=== PATIENT | female | born 1985 | race Caucasian/White ===

== ENCOUNTER 2022-06-29 06:07 | Day surgery (SDC) | payer OTHER ==
[2022-06-28 11:55] LABS: Mean Corpuscular HGB CONC 34.9 g/dL (32.0-36.0); Mean Corpuscular Hemoglobin 28.6 pg (27.0-33.0); Mean Platelet Volume 9.2 fl (7.4-10.4); Platelet Count 231 10x3/uL (150-450); RBC Distribution Width 12.6 % (11.5-14.5); Red Blood Cell (RBC) Count 4.89 10x6/uL (3.90-5.03)
[2022-06-28 12:42] VITALS: BMI 24.7
[2022-06-29] MEDS ORDERED: Misoprostol 200 MCG TAB ONE (06:39)
[2022-06-29] MEDS ORDERED: Methylergonovine 0.2 MG/ML VIAL ONE (06:39)
[2022-06-29] MEDS ORDERED: Tranexamic Acid 1,000 MG/10 ML VIAL ONE (06:39)
[2022-06-29] MEDS ORDERED: Midazolam HCl 2 mg/2 ml Vial ONE ×2 (06:43→07:48)
[2022-06-29] MEDS ORDERED: Dexamethasone 20 MG/5 ML VIAL ONE (06:43)
[2022-06-29] MEDS ORDERED: Lidocaine 1% PF 5 ML VIAL ONE (06:43)
[2022-06-29] MEDS ORDERED: Ketorolac Tromethamine 30 MG/ML VIAL ONE (06:43)
[2022-06-29] MEDS ORDERED: Ondansetron PF 4 MG/2 ML Vial ONE (06:43)
[2022-06-29] MEDS ORDERED: PROPOFOL 20 ML ONE ×2 (06:43→08:06)
[2022-06-29] MEDS ORDERED: Fentanyl 100 MCG/2 ML VIAL ONE ×2 (06:43→08:52)
[2022-06-29] MEDS ORDERED: Lidocaine 1% MPF 2 ML VIAL ONE (07:35)
[2022-06-29] MEDS ORDERED: CEFAZOLIN 2 GM VIAL ONE (07:39)
[2022-06-29] MEDS ORDERED: Meperidine HCl/PF 25 MG/ML VIAL ONE (08:32)
== END 2022-06-29 11:35 | disposition home or self-care (01) ==
LOC: CSHSDC 06:07
PROVIDERS: ATTEND Student in an Organized Health Care Education/Training Program
PROC: 10D17ZZ Extraction of Products of Conception, Retained, Via Natural or Artificial Opening (ICD-10-PCS; principal; 2022-06-29)
DX: O02.1 Missed abortion (principal); Z20.822 Contact with and (suspected) exposure to COVID-19
CPT/HCPCS: 85027; 86850; 86900; 86901; 87811; 88305; 90384; 96372; J0690; J1100; J1885; J2175; J2210; J2250; J2405; J2704; J3010

== ENCOUNTER 2024-12-07 10:00 | Day surgery (SDC) | payer OTHER ==
[2024-12-06 13:44] VITALS: BMI 27.4
[2024-12-07] MEDS ORDERED: Doxycycline 100 MG CAP PO SCH (11:00)
[2024-12-07] MEDS ORDERED: Misoprostol 200 MCG TAB ONE (12:49)
[2024-12-07] MEDS ORDERED: Methylergonovine 0.2 MG/ML VIAL ONE (12:49)
[2024-12-07] MEDS ORDERED: Carboprost 250 MCG/ML AMP ONE (12:49)
[2024-12-07] MEDS ORDERED: Ferric Subsulfate 8 ML TOPICAL SOLN ONE (12:49)
== END 2024-12-07 20:25 | disposition home or self-care (01) ==
LOC: CSHSDC 10:00
PROVIDERS: ATTEND Family Medicine
PROC: 10D07Z8 Extraction of Products of Conception, Other, Via Natural or Artificial Opening (ICD-10-PCS; principal; 2024-12-07)
DX: O02.0 Blighted ovum and nonhydatidiform mole (principal); Z87.59 Personal history of other complications of pregnancy, childbirth and the puerperium; Z88.0 Allergy status to penicillin; Z28.21 Immunization not carried out because of patient refusal
CPT/HCPCS: 88305; J2210; J3490

== ENCOUNTER → 2024-12-07 20:25 | Observation (INO) | payer OTHER ==
[2024-12-07 11:06] LABS: Hematocrit 37.9 % (34.9-44.5); Hemoglobin 12.9 g/dL (12.0-15.5); Mean Corpuscular Hemoglobin 28.2 pg (27.0-33.0); Mean Corpuscular Volume 82.8 fL (81.6-98.3); Mean Platelet Volume 9.3 fL (7.4-10.4); Platelet Count 210 10x3/uL (150-450); RBC Distribution Width 12.1 % (11.5-14.5); Red Blood Cell (RBC) Count 4.58 10x6/uL (3.90-5.03)
[2024-12-07 14:05] LABS: #Basophils 0.05 10x3/uL (0.0-0.2); #Eosinophils 0.17 10x3/uL (0.0-0.5); #Monocytes 0.41 10x3/uL (0.0-1.1); #Neutrophils 11.24 10x3/uL (1.5-8.4); %Basophils 0.4 % (0.0-2.0); %Eosinophils 1.2 % (0.0-6.0); %Lymphocytes 12.7 % (18.0-47.0); %Neutrophils 81.9 % (40.0-75.0); Hematocrit 34.6 % (34.9-44.5); Hemoglobin 11.5 g/dL (12.0-15.5); Mean Corpuscular HGB CONC 33.2 g/dL (32.0-36.0); Mean Corpuscular Volume 84.4 fL (81.6-98.3); Mean Platelet Volume 9.1 fL (7.4-10.4); Platelet Count 213 10x3/uL (150-450); RBC Distribution Width 13.2 % (11.5-14.5); White Blood Cell (WBC) Count 13.72 10x3/uL (3.5-10.5)
[2024-12-07 14:25] LABS: D-Dimer Test 3.11 mcg/mL (0.19-0.50); INR-International Normal Ratio 1.1; PTT 25.9 sec (22.0-33.0); Prothrombin Time 11.6 sec (9.5-12.1)
[2024-12-07 15:34] VITALS: TEMP 97.9; BMI 27.4
[2024-12-07 17:14] LABS: Hematocrit 35.2 % (34.9-44.5); Hemoglobin 12.1 g/dL (12.0-15.5); Mean Corpuscular HGB CONC 34.4 g/dL (32.0-36.0); Mean Corpuscular Hemoglobin 28.5 pg (27.0-33.0); Platelet Count 190 10x3/uL (150-450); RBC Distribution Width 12.8 % (11.5-14.5); Red Blood Cell (RBC) Count 4.24 10x6/uL (3.90-5.03); White Blood Cell (WBC) Count 11.33 10x3/uL (3.5-10.5)
[2024-12-07] MEDS: Ibuprofen 200 MG TAB PO PRN (17:53)
[2024-12-07] MEDS: Ketorolac Tromethamine 30 MG (1 mL) VIAL IVP SCH (17:54)
[2024-12-07] MEDS: FLU (Fluarix Triv) TS24-25(6MOS UP)/PF 45 MCG/0.5 ML Syringe IM ONE (17:54)
[2024-12-07 18:56] VITALS: BP 119/58
[~2024-12-07 20:25] MED LIST: Acetaminophen 325 MG TAB PO PRN; Carboprost 250 MCG/ML AMP ONE; Dexamethasone 4 mg/ml Vial ONE; Dexmedetomidine 200 MCG/2 ML VIAL ONE; Docusate 100 MG CAP PO SCH; Ferric Subsulfate 8 ML TOPICAL SOLN ONE; HYDROcodone/Acetaminophen 5/325 mg Tablet PO PRN; Ketorolac Tromethamine 30 MG (1 mL) VIAL ONE; Lactated Ringer's 1,000 ML IV SCH; Lidocaine 1% PF 5 ML VIAL ONE; Methylergonovine 0.2 MG/ML VIAL ONE; Misoprostol 200 MCG TAB ONE; Misoprostol 200 MCG TAB PO SCH; Ondansetron PF 4 MG/2 ML Vial IVP PRN; Ondansetron PF 4 MG/2 ML Vial ONE; PROPOFOL 40 ML ONE; Tranexamic Acid 1,000 MG/10 ML VIAL ONE; fentaNYL 50 mcg/mL 1 mL Vial ONE; hydrALAZINE 20 MG/ML VIAL SLOW IVP PRN
== END | disposition home or self-care (01) ==
LOC: OBSVTOIN 10:04 → INTOOBSV 10:04 → CSHTELE 10:04
PROVIDERS: ADMIT Obstetrics & Gynecology; ATTEND Obstetrics & Gynecology
PROC: 10D18ZZ Extraction of Products of Conception, Retained, Via Natural or Artificial Opening Endoscopic (ICD-10-PCS; principal; 2024-12-07)
DX: O02.1 Missed abortion (principal); Z88.0 Allergy status to penicillin
CPT/HCPCS: 36415; 36430; 85027; 85049; 85300; 85362; 85384; 85610; 85730; 86850; 86900; 86901; 88305; 90384; 96372; J1100; J1885; J2210; J2405; J2704; J3010; J3490; P9016